=== PATIENT | male | born 1955 | race African-American/Black ===

== ENCOUNTER → 2019-05-28 | Outpatient (CLI) | payer OTHER, MEDICARE ==
--- NOTE | 2019-05-28 16:12 | RAD ---
EXAM: AP, oblique and lateral views of the left foot DATE: 05/28/2019 12:00 AM INDICATION: Left great toe pain, injury COMPARISON: No Prior FINDINGS/ IMPRESSION: 1. Moderate soft tissue swelling about the left great toe. 2. No evidence of acute fracture or dislocation. 3. Mild hallux MTP joint degenerative changes are seen with small osteophytes. 4. Achilles tendon enthesopathy but with irregularity of the associated calcaneus, possibly posttraumatic or from prior prior infectious or inflammatory process. 5. Atherosclerotic vascular calcifications are seen. Electronically signed by: Elmer Webster MD (05/28/2019 4:09 PM) [facility]
== END | disposition home or self-care (01) ==
LOC: RAD 11:59
PROVIDERS: ATTEND Internal Medicine
DX: M20.12 Hallux valgus (acquired), left foot (principal); M25.775 Osteophyte, left foot; M77.52 Other enthesopathy of left foot and ankle; M79.89 Other specified soft tissue disorders; I70.202 Unspecified atherosclerosis of native arteries of extremities, left leg
CPT/HCPCS: 73630